=== PATIENT | female | born 1985 | race African-American/Black ===

== ENCOUNTER 2016-03-08 10:49 | Emergency (ER) | payer OTHER ==
[~2016-03-08] VITALS: Ht 165.1 cm; Wt 73.0 kg
[~2016-03-08 10:49] MED LIST: MOTRIN 600 MG600 MG PO; MOTRIN800 MG PO; PERCOCET 325 MG1 TA2 PO; TRAMADOL HCL50 M1 PO; VICODIN5-300 PO; ZOFRAN4 M1 PO; [UNRECOGNIZED DRUG - MIXTURE] PO
[2016-03-08 11:03] VITALS: BP 108/74
--- NOTE | 2016-03-08 11:23 | ED NECK/BACK PAIN COMPLAINT ---
History of Present Illness General Chief Complaint: Neck/Upper Back Pain/Injury Stated Complaint: NECK PAIN X 1WK Source: patient Exam Limitations: no limitations Vital Signs & Intake/Output Vital Signs & Intake/Output Vital Signs Date Time Temp Pulse Resp B/P Pulse O2 O2 Flow FiO2 Ox Delivery Rate 03/08 1103 98.7 77 18 108/74 97 Room Air Allergies Coded Allergies: NO KNOWN ALLERGIES (12/23/12) Triage Note: 31 Y/O FEMALE C/O R SIDED NECK PAIN X 1 WEEK; STATES PAIN RADIATES INTO UPPER BACK AND CAUSES MIGRAINE WITH NAUSEA. DENIES INJURIES OR TRAUMA Triage Nurses Notes Reviewed? yes : No Patient currently breastfeeds: No HPI: PATIENT IS A 31-YEAR-OLD FEMALE PRESENTS COMPLAINING OF RIGHT-SIDED NECK PAIN 1 week. Pain is a sharp shooting pain that is currently a 6 out of 10, worsens with movement and palpation. Pain radiating into the head causing patient to get headaches. Patient reports headaches are bitemporal and behind her eyes. Associated nausea with the headaches. Patient reports that the neck pain first began when she awoke one week ago. Patient cannot think of any inciting factor or trauma. Patient has not taken any medication for her symptoms. Patient denies numbness, weakness, falls, fevers, rashes. (ALFREDO GUADALUPE,VAIBHAV) Reconcile Medications Diazepam (Valium) 2 MG TABLET 1-2 TAB PO Q6 PRN MUSCLE RELAXANT Meloxicam (Mobic) 15 MG TABLET 1 TAB PO DAILY PRN PAIN/INFLAMMATION Metoclopramide HCl (Reglan) 10 MG TABLET 1 TAB PO TID PRN NAUSEA/HEADACHE NORETHINDRONE-E.ESTRADIOL-IRON (Lomedia 24 Fe 1 MG-20 Mcg Tab) 1 MG-20 MCG (24)/ 75 MG (4) TABLET 1 TAB PO DAILY CONTROL (Reported) (LAYLA FARRELL,RAJAN) Past History Travel History Traveled to [place] past 21 day No Medical History Any Pertinent Medical History? see below for history Neurological: NONE EENT: NONE Cardiovascular: NONE Respiratory: NONE Gastrointestinal: NONE Hepatic: NONE Renal: NONE Musculoskeletal: NONE Psychiatric: anxiety Endocrine: NONE Blood Disorders: NONE Cancer(s): NONE LICENSED MIDWIFE/Reproductive: NONE Surgical History Surgical History: N Psychosocial History What is your primary language Russian Tobacco Use: Never used ETOH Use: occasional use Illicit Drug Use: denies illicit drug use Family History Hx Contributory? No (VAIBHAV FUENTES) Review of Systems Review of Systems Constitutional: Denies: chills, fever. Eyes: Denies: blurred vision. Ears, Nose, Throat, Mouth: Reports: no symptoms. Respiratory: Denies: cough, short of breath. Cardiovascular: Denies: chest pain. Gastrointestinal/Abdominal: Reports: nausea (none currently). Denies: abdominal pain, vomiting. Musculoskeletal: Reports: neck pain. Denies: back pain. Skin: Reports: no symptoms. Neurological/Psychological: Reports: headache. Denies: confusion, numbness. (VAIBHAV FUENTES) Physical Exam Physical Exam General Appearance: well developed/nourished, alert, awake Head: atraumatic, normal appearance Eyes: Bilateral: normal appearance, PERRL, EOMI. Ears, Nose, Throat, Mouth: hearing grossly normal, moist mucous membrane Neck: normal inspection, supple, full range of motion, normal alignment, TENDERNESS RIGHT PARASPINAL MUSCLES AND RIGHT TRAPEZIUS MUSCLE. Respiratory: normal breath sounds, no respiratory distress, lungs clear Cardiovascular: regular rate/rhythm Peripheral Pulses: 2+ radial (R), 2+ radial (L) Back: normal inspection, normal range of motion Extremities: normal range of motion Neurologic/Psych: no motor/sensory deficits, awake, alert, oriented x 3, normal gait, normal mood/affect, REFLEXES 2+ RIGHT BICEPS AND BRACHIORADIALIS. Skin: intact, normal color, warm/dry (VAIBHAV FUENTES) Progress Differential Diagnosis: aortic dissection, carotid dissection, herniated disc, myofascial strain, spinal cord inj, T/L spine injury Plan of Care: Appears consistent with muscle strain/spasm. Labs and imaging deferred secondary to exam. We'll treat conservatively. (VAIBHAV FUENTES) Departure Departure Time of Disposition: 1130 Disposition: HOME OR SELF CARE Condition: Stable Clinical Impression Primary Impression: Cervical strain, acute Qualifiers: Encounter type: initial encounter Qualified Code: S16.1XXA - Strain of muscle, fascia and tendon at neck level, initial encounter Secondary Impressions: Headache Qualifiers: Headache type: unspecified Headache chronicity pattern: acute headache Intractability: not intractable Qualified Code: R51 - Headache Muscle spasm Referrals: LAM SANTANA MD (PCP/Family) Additional Instructions: Apply heat to the affected area for 20 minutes 4-5 times a day. Follow-up with your primary doctor if no improvement by Friday. Return to the emergency department if numbness, weakness, fevers, rash, pain uncontrollable, or worsening of symptoms. Departure Forms: Customer Survey General Discharge Information Prescriptions: Current Visit Scripts Diazepam (Valium) 1-2 TAB PO Q6 PRN MUSCLE RELAXANT #15 TAB Meloxicam (Mobic) 1 TAB PO DAILY PRN PAIN/INFLAMMATION #10 TAB Metoclopramide HCl (Reglan) 1 TAB PO TID PRN NAUSEA/HEADACHE #10 TAB (VAIBHAV FUENTES) PA/ASSOCIATE DIRECTOR CAREER SERVICES Co-Sign Statement Statement: ED Attending supervision documentation- [] I saw and evaluated the patient. I have also reviewed all the pertinent lab results and diagnostic results. I agree with the findings and the plan of care as documented in the PA's/ASSOCIATE DIRECTOR CAREER SERVICES's documentation. [X] I have reviewed the ED Record and agree with the PA's/ASSOCIATE DIRECTOR CAREER SERVICES's documentation. [] Additions or exceptions (if any) to the PAs/ASSOCIATE DIRECTOR CAREER SERVICES's note and plan are summarized below: [] (LAYLA FARRELL,RAJAN)
[2016-03-08] MEDS ORDERED: REGLAN10 M1 PO (11:32)
[2016-03-08] MEDS ORDERED: MOBIC15 M1 PO (11:32)
[2016-03-08] MEDS ORDERED: VALIUM2 M1 PO (11:32)
== END 2016-03-08 11:43 ==
LOC: ERH 10:49
DX: S16.1XXA Strain of muscle, fascia and tendon at neck level, initial encounter (principal); R51 Headache

== ENCOUNTER 2016-05-26 18:29 | Emergency (ER) | payer OTHER ==
[~2016-05-26] VITALS: Ht 165.1 cm; Wt 72.6 kg
[~2016-05-26 18:29] MED LIST changes: +MOBIC15 M1 PO; +REGLAN10 M1 PO; +VALIUM2 M1 PO
[2016-05-26 18:36] VITALS: BP 108/72
--- NOTE | 2016-05-26 19:45 | ED GENERAL ADULT ---
History of Present Illness General Chief Complaint: General Adult Stated Complaint: WEAK PER PT DOESN'T FEEL LIKE SELF Source: patient, family, old records Exam Limitations: no limitations Vital Signs & Intake/Output Vital Signs & Intake/Output Vital Signs Date Time Temp Pulse Resp B/P Pulse O2 O2 Flow FiO2 Ox Delivery Rate 05/27 2015 Room Air 05/26 1836 97.1 104 16 108/72 100 Room Air Allergies Coded Allergies: NO KNOWN ALLERGIES (12/23/12) Reconcile Medications Ciprofloxacin HCl/Dexameth (Ciprodex Otic Suspension) 0.3 %-0.1 % DROPS.SUSP 4 GTT OT BID otitis externa use for 7 days Norethindrone-E.estradiol-Iron (Blisovi 24 Fe Tablet) 1 MG-20 MCG (24)/75 MG (4) TABLET 1 TAB PO DAILY CONTROL (Reported) Triage Note: PT STATES SHE FEELS WEAK AND THINKS THAT SHE MAY HAVE AN EAR INFECTION IN HER LEFT EAR. PT STATES SHE FEELS LIKE SHE CAN GO TO SLEEP "FOR THE REST OF MY LIFE, IM THAT TIRED". Triage Nurses Notes Reviewed? yes : No Patient currently breastfeeds: No HPI: Patient is a 31-year-old female presents complaining of severe fatigue. Symptoms for 2-3 days. Also reporting right ear pain with fullness and pressure severe. Pain is currently mild to moderate. Patient denies fevers, chills, dyspnea (VAIBHAV FUENTES) Past History Travel History Traveled to [place] past 21 day No Medical History Any Pertinent Medical History? see below for history Neurological: NONE EENT: NONE Cardiovascular: NONE Respiratory: NONE Gastrointestinal: NONE Hepatic: NONE Renal: NONE Musculoskeletal: NONE Psychiatric: anxiety Endocrine: NONE Blood Disorders: NONE Cancer(s): NONE DIRECTOR OF RESIDENTIAL SERVICES/Reproductive: NONE Surgical History Surgical History: N Psychosocial History What is your primary language Spanish Tobacco Use: Never used ETOH Use: occasional use Illicit Drug Use: denies illicit drug use Family History Hx Contributory? No (VAIBHAV FUENTES) Review of Systems Review of Systems Constitutional: Reports: malaise. Denies: chills, fever. EENTM: Reports: see HPI. Respiratory: Reports: cough. Denies: short of breath. Cardiovascular: Denies: chest pain. GI: Denies: abdominal pain, diarrhea, nausea, vomiting. Genitourinary: Reports: no symptoms. Musculoskeletal: Reports: no symptoms. Skin: Denies: rash. Neurological/Psychological: Denies: headache, numbness. Hematologic/Endocrine: Denies: bruising, bleeding. Immunologic/Allergic: Denies: splenectomy. (VAIBHAV FUENTES) Physical Exam Physical Exam General Appearance: well developed/nourished, alert, awake Head: atraumatic, normal appearance Eyes: Bilateral: normal appearance. Ears, Nose, Throat: cerumen impaction right external auditory canal. Moderate cerumen left external auditory canal. Left tympanic membrane normal. Moist mucous membranes. Normal pharynx. Neck: normal inspection, supple, full range of motion Respiratory: normal breath sounds, chest non-tender, no respiratory distress, lungs clear Cardiovascular: mild tachycardia, regular rhythm. No appreciable murmur Peripheral Pulses: 2+ radial (R) Gastrointestinal: soft, non-tender Back: normal inspection, normal range of motion Extremities: normal inspection, normal capillary refill, normal range of motion, no edema Neurologic/Psych: no motor/sensory deficits, awake, alert, oriented x 3, normal gait, normal mood/affect Skin: intact, normal color, warm/dry Lymphatic: no anterior cervical livia Core Measures ACS in differential dx? No CVA/TIA Diagnosis: No Severe Sepsis Present: No Septic Shock Present: No (VAIBHAV FUENTES) Progress Differential Diagnoses I considered the following diagnoses in my evaluation of the patient: Anemia, electrolyte abnormality, thyroid abnormality, viral syndrome, otitis media, otitis externa, cerumen impaction, malignancy Plan of Care: Orders Procedure Date/time Status THYROID STIMULATING HORMONE 05/27 1939 Complete COMPREHENSIVE METABOLIC PANEL 05/27 1939 Complete CBC WITHOUT DIFFERENTIAL 05/27 1939 Complete URINE 05/26 183 Complete Laboratory Tests 05/26/162004: Anion Gap 12, Estimated GFR > 60, BUN/Creatinine Ratio 11.4, Glucose 96, Calcium 9.5, Total Bilirubin 0.3, AST 14, ALT 29, Alkaline Phosphatase 55, Total Protein 7.6, Albumin 4.0, Globulin 3.6, Albumin/Globulin Ratio 1.1, TSH 0.546, CBC w Diff NO MAN DIFF REQ, RBC 4.15 L, MCV 98.3, MCH 32.3 H, RDW 14.1, MPV 8.2, Gran % 49.8, Lymphocytes % 38.8, Monocytes % 8.4, Eosinophils % 1.4, Basophils % 1.6, Absolute Granulocytes 3.5, Absolute Lymphocytes 2.8, Absolute Monocytes 0.6 , Absolute Eosinophils 0.1, Absolute Basophils 0.1, PUBS MCHC 32.8 L 05/26/161841: Urine Test NEGATIVE Right cerumen impaction irrigated with warm water and peroxide. Ear rechecked after impaction was clear. Normal tympanic membrane. 2119: Results of labs discussed with patient. Patient reports mild pain to the right ear but feels improved after disimpaction. Recheck. Mild erythema to the right external auditory canal. Normal tympanic membrane. We'll start on eardrops. Patient has an appointment with her primary care doctor tomorrow. (VAIBHAV FUENTES) Initial ED EKG: none (VAIBHAV FUENTES) Departure Departure Time of Disposition: 2121 Disposition: HOME OR SELF CARE Condition: Stable Clinical Impression Primary Impression: Fatigue Secondary Impressions: Impacted cerumen of right ear, Right otitis externa Referrals: LAM SANTANA MD (PCP/Family) Additional Instructions: Follow-up with your primary doctor tomorrow as previously scheduled. Departure Forms: Customer Survey General Discharge Information Prescriptions: Current Visit Scripts Ciprofloxacin HCl/Dexameth (Ciprodex Otic Suspension) 4 GTT OT BID #1 BOT use for 7 days (VAIBHAV FUENTES) PA/INTRANET SPECIALIST Co-Sign Statement Statement: ED Attending supervision documentation- [] I saw and evaluated the patient. I have also reviewed all the pertinent lab results and diagnostic results. I agree with the findings and the plan of care as documented in the PA's/INTRANET SPECIALIST's documentation. [X] I have reviewed the ED Record and agree with the PA's/INTRANET SPECIALIST's documentation. [] Additions or exceptions (if any) to the PAs/INTRANET SPECIALIST's note and plan are summarized below: [] (OLVIN FARRELL,MADAN Nieto) Critical Care Note Critical Care Note Critical Care Time: non-applicable (VAIBHAV FUENTES)
[2016-05-26] MEDS ORDERED: BLISOVI 24 FE1 EACH PO (20:01)
[2016-05-26 20:15] LABS: ABSOLUTE BASOPHIL COUNT 0.1 /CUMM (0.0-0.2); ABSOLUTE EOSINOPHIL COUNT 0.1 /CUMM (0.0-0.7); ABSOLUTE GRANULOCYTE CT 3.5 /CUMM (1.4-6.5); ABSOLUTE LYMPH COUNT 2.8 /CUMM (1.2-3.4); ABSOLUTE MONOCYTE COUNT 0.6 /CUMM (0.10-0.60); BASOPHIL % 1.6 % (0.0-2.0); EOSINOPHIL % 1.4 % (0-5); GRANULOCYTE % 49.8 % (42.2-75.2); HEMATOCRIT 40.8 % (37-47); MEAN CORPUSCULAR HGB 32.3 PG (27.0-31.0); MEAN CORPUSCULAR HGB CONC 32.8 G/DL (33.0-37.0); MEAN CORPUSCULAR VOLUME 98.3 FL (81.0-99.0); MEAN PLATELET VOLUME 8.2 FL (7.4-10.4); PLATELET COUNT 312 /CUMM (130-400); RBC DISTRIBUTION WIDTH 14.1 % (11.5-14.5); RED BLOOD CELL CT 4.15 /CUMM (4.20-5.40); WHITE BLOOD CELL COUNT 7.1 /CUMM (4.8-10.8)
[2016-05-26] MEDS ORDERED: CIPRODEX OTIC7.5 ML OT (21:24)
== END 2016-05-26 21:27 ==
LOC: ERH 18:29
PROVIDERS: Physician Assistant
DX: R53.83 Other fatigue (principal); H60.91 Unspecified otitis externa, right ear; H61.21 Impacted cerumen, right ear
CPT/HCPCS: 81025

== ENCOUNTER 2017-03-16 17:04 | Emergency (ER) | payer OTHER ==
[~2017-03-16] VITALS: Ht 165.1 cm; Wt 72.1 kg
[~2017-03-16 17:04] MED LIST changes: +BLISOVI 24 FE1 EACH PO; +CIPRODEX OTIC7.5 ML OT
[2017-03-16 17:09] VITALS: BP 111/73
--- NOTE | 2017-03-16 17:15 | ED UPPER/LOWER EXTREMITY COMPL ---
History of Present Illness General Chief Complaint: Shoulder Injury Stated Complaint: SHOULDER PAIN Source: patient Exam Limitations: no limitations Vital Signs & Intake/Output Vital Signs & Intake/Output Vital Signs Date Time Temp Pulse Resp B/P B/P Pulse O2 O2 Flow FiO2 Mean Ox Delivery Rate 03/16 1721 99.0 03/16 1709 99.0 68 18 111/73 96 Room Air Room Air Allergies Coded Allergies: NO KNOWN ALLERGIES (12/23/12) Reconcile Medications Ciprofloxacin HCl/Dexameth (Ciprodex Otic Suspension) 0.3 %-0.1 % DROPS.SUSP 4 GTT OT BID otitis externa use for 7 days Norethindrone-E.estradiol-Iron (Blisovi 24 Fe Tablet) 1 MG-20 MCG (24)/75 MG (4) TABLET 1 TAB PO DAILY CONTROL (Reported) Triage Note: TRIAGE: 32 Y/O FEMALE 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 REPORTS WAS "BOOSTING A PATIENT AND FELT A SHARP PAIN AT THE TOP OF MY SHOULDER." PAIN HAS INCREASED AND NOW RADIATES DOWN LEFT ARM - "IT'S TINGLING AND MY HAND IS STARTING TO GO NUMB." AT PRESENT, PAIN 8-9/10. DECLINES MEDICATION IN TRIAGE. Triage Nurses Notes Reviewed? 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 Denies any neck or elbow pain. No medications given prior to arrival (Laci Triana) Past History Travel History Traveled to [facility] past 21 day No Medical History Any Pertinent Medical History? 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 No (Laci Triana) Review of Systems Review of Systems Constitutional: Reports: no symptoms. EENTM: Reports: no symptoms. Respiratory: Reports: no symptoms. Cardiovascular: Reports: no symptoms. Gastrointestinal/Abdominal: Reports: no symptoms. Genitourinary: Reports: no symptoms. Musculoskeletal: Reports: see HPI, joint pain. Skin: Reports: no symptoms. Neurological/Psychological: Reports: no symptoms. Hematologic/Endocrine: Reports: no symptoms. Immunological: Reports: no symptoms. All Other Systems: Reviewed and Negative (Laci Triana) Physical Exam Physical Exam General Appearance: no apparent distress, alert, comfortable Head: atraumatic Eyes: Bilateral: normal appearance. Ears, Nose, Throat: hearing grossly normal Neck: normal inspection Cardiovascular/Respiratory: no respiratory distress Peripheral Pulses: 2+ radial (L) Elbow Left: normal range of motion, normal inspection Hand Left: normal inspection, normal range of motion Neurologic/Tendon: normal sensation, normal motor functions, normal tendon functions, responds to pain, no evidence tendon injury, no pulse deficit Skin: intact, normal color, warm/dry Comments: Left shoulder normal inspection noted acromioclavicular point tenderness FULL active range of motion noted pain above 90 of flexion abduction, (Laci Triana) Progress Differential Diagnosis: arterial insufficiency, compartment syndrome, contusion, dislocation, DVT, fracture, gout, septic arthritis, sprain, tendon injury Plan of Care: Orders Procedure Date/time Status Durable Medical Equipment 03/16 1901 Active X-rays were unremarkable for osseous injury due to history of present illness and patient point tenderness patient will be treated for concerns of AC grade 1 sprain shoulder immobilizer was placed pre-and post-neurovascular was intact Diagnostic Imaging: Viewed by Me: Radiology Read. Radiology Impression: no fracture Comments: PATIENT: LING MANNING PRESENT AGE: 32 PATIENT ACCOUNT NO: [id number] : 84 LOCATION: [facility] ORDERING PHYSICIAN: Laci GUADALUPE SERVICE DATE: 03/16/17365 EXAM TYPE: RAD - XRY-SHOULDER COMPLETE-LEFT EXAMINATION: XR SHOULDER, LEFT CLINICAL INFORMATION: 32-year-old woman with left shoulder pain. COMPARISON: None TECHNIQUE: Three views of the left shoulder. FINDINGS: The bones and soft tissues are normal. No fracture. Glenohumeral and acromioclavicular alignment is anatomic with normal joint space. No abnormal soft tissue calcifications. IMPRESSION: Normal left shoulder. DICTATED BY: Vidhya Tobar MD DATE/TIME DICTATED:03/16/171757 MAINTENANCE JOB TITLES:DWIGHT DATE/TIME TRANSCRIBED:03/16/171757 (Laci Triana) Departure Departure Disposition: HOME OR SELF CARE Condition: Stable Clinical Impression Primary Impression: Shoulder pain, left Secondary Impressions: Acromioclavicular joint injury Referrals: Ronald FARRELL,Vick Additional Instructions: As discussed begin icing the area directly 20 minutes every 2 hours, begin using the shoulder immobilizer THAT has been provided to YOU IN the emergency room until you can move the arm without pain, symptoms worsen return to emergency ROOM if no better in one week follow up with orthopedic Dr. Cardenas. Begin over- the-counter ibuprofen for pain and inflammation follow-up with [facility] this week Departure Forms: Customer Survey [employer] Employee Acc Report General Discharge Information (Laci Triana) PA/PRIMER WATERPROOFING MACHINE OPERATOR Co-Sign Statement Statement: ED Attending supervision documentation- I saw and evaluated the patient. I have also reviewed all the pertinent lab results and diagnostic results. I agree with the findings and the plan of care as documented in the PA's/PRIMER WATERPROOFING MACHINE OPERATOR's documentation. x I have reviewed the ED Record and agree with the PA's/PRIMER WATERPROOFING MACHINE OPERATOR's documentation. [] Additions or exceptions (if any) to the PAs/PRIMER WATERPROOFING MACHINE OPERATOR's note and plan are summarized below: [] (Roshan FARRELL,Erasmo)
--- NOTE | 2017-03-16 18:02 | RADIOLOGY REPORT ---
EXAMINATION: XR SHOULDER, LEFT CLINICAL INFORMATION: 32-year-old woman with left shoulder pain. COMPARISON: None TECHNIQUE: Three views of the left shoulder. FINDINGS: The bones and soft tissues are normal. No fracture. Glenohumeral and acromioclavicular alignment is anatomic with normal joint space. No abnormal soft tissue calcifications. IMPRESSION: Normal left shoulder.
== END 2017-03-16 19:16 ==
LOC: ERH 17:04
DX: S49.92XA Unspecified injury of left shoulder and upper arm, initial encounter (principal); M25.512 Pain in left shoulder; X50.0XXA Overexertion from strenuous movement or load, initial encounter; Y93.F2 Activity, caregiving, lifting; Y92.239 Unspecified place in hospital as the place of occurrence of the external cause
CPT/HCPCS: 73030-LT

== ENCOUNTER 2017-05-17 11:40 | Emergency (ER) | payer OTHER ==
[~2017-05-17] VITALS: Ht 165.1 cm; Wt 73.5 kg
--- NOTE | 2017-05-17 12:16 | ED CARDIAC/CP/PALPITATIONS ---
History of Present Illness General Chief Complaint: Chest Pain Stated Complaint: CHEST PAIN "ELEPHANT ON CHEST" Source: patient Exam Limitations: no limitations Vital Signs & Intake/Output Vital Signs & Intake/Output Vital Signs Date Time Temp Pulse Resp B/P B/P Pulse O2 O2 Flow FiO2 Mean Ox Delivery Rate 05/17 1524 99.3 75 18 112/73 100 Room Air 05/17 1248 98.6 05/17 1221 98 Room Air Room Air 05/17 1219 98.6 05/17 1154 98.6 84 18 122/70 100 Room Air Allergies Coded Allergies: latex (RASH 05/17/17) Reconcile Medications Cholecalciferol (Vitamin D3) (Vitamin D3) (Unknown Strength) CAPSULE (Unknown Dose) PO DAILY SUPPLEMENT (Reported) Multiple Vitamin (Multivitamins) 1 EACH TABLET 1 TAB PO DAILY SUPPLEMENT ( Reported) Norethindrone-E.estradiol-Iron (Blisovi 24 Fe Tablet) 1 MG-20 MCG (24)/75 MG (4) TABLET 1 TAB PO DAILY CONTROL (Reported) Omeprazole 20 MG TABLET.DR 1-2 TAB PO DAILY PRN abdominal pain Triage Note: PT TO ER C/O CHEST PAIN SINCE LAST NIGHT, PT WOKE UP THIS MORNING AND STATES IT FELT LIKE AN ELEPHANT WAS ON HER CHEST. PT STATES PAIN IS 7/10 PT ALSO C/O NASAL CONGESTION PT IS TEARFUL IN TRIAGE AN STATES THAT SHE HAS A HISTORY OF ANXIETY, DEPRESSION AND PANICK ATTACKS Triage Nurses Notes Reviewed? yes Onset: Gradual Duration: day(s): (2), better, continues in ED Timing: single episode today Quality/Severity: moderate, pressure, sharp Location: epigastric Radiation: no radiation Activities at Onset: none Prior Chest Pain/Card Workup: no prior chest pain, no prior cardiac workup Modifying Factors: Worsens With: lying down. Nitro Today/Relief: no nitro taken today Aspirin Today: no aspirin today Associated Symptoms: abdominal pain LMP (ages 10-50): unknown : No Patient currently breastfeeds: No HPI: 32-year-old female past medical history of anxiety, depression, peptic ulcer disease presents for evaluation of chest pain and epigastric pain. Patient states that she first noticed this pain last night that has been persistent. It was worse when she woke up this morning. The pain is located in her epigastric area and radiates up into her chest. She describes the pain as pressure that is intermittently sharp. She's never had anything like this before. She denies any shortness of breath hemoptysis lower extremity edema nausea vomiting. She does report that she has a history of gastric ulcers but they never been this painful before. The pain does not get worse on exertion but is worse with laying back down. She has not eaten anything since the pain started. No melena or bright red blood per rectum. No back pain. (Jose Alfredo De Los Santos) Past History Travel History Traveled to [place] past 21 day No Medical History Any Pertinent Medical History? see below for history Neurological: NONE EENT: NONE Cardiovascular: NONE Respiratory: NONE Gastrointestinal: NONE Hepatic: NONE Renal: NONE Musculoskeletal: NONE Psychiatric: anxiety, depression Endocrine: NONE Blood Disorders: NONE Cancer(s): NONE REMEDY DEVELOPER/Reproductive: NONE Surgical History Surgical History: non-contributory, N Psychosocial History What is your primary language Albanian Tobacco Use: Never used Family History Hx Contributory? No (Jose Alfredo De Los Santos) Review of Systems Review of Systems Constitutional: Reports: no symptoms. EENTM: Reports: no symptoms. Respiratory: Reports: no symptoms. Cardiovascular: Reports: see HPI, chest pain. GI: Reports: see HPI, abdominal pain. Genitourinary: Reports: no symptoms. Musculoskeletal: Reports: no symptoms. Skin: Reports: no symptoms. Neurological/Psychological: Reports: no symptoms. Hematologic/Endocrine: Reports: no symptoms. Immunologic/Allergic: Reports: no symptoms. All Other Systems: Reviewed and Negative (Jose Alfredo De Los Santos) Physical Exam Physical Exam General Appearance: well developed/nourished, alert, awake, anxious, mild distress Head: atraumatic, normal appearance Eyes: Bilateral: normal appearance, PERRL, EOMI. Ears, Nose, Throat: normal pharynx, normal ENT inspection, hearing grossly normal Neck: normal inspection, supple, full range of motion Respiratory: normal breath sounds, no respiratory distress, lungs clear, chest wall tender palpation over the sternum and left chest no bruising swelling or abrasions Cardiovascular: regular rate/rhythm, normal peripheral pulses Peripheral Pulses: 2+ radial (R), 2+ radial (L) Gastrointestinal: normal bowel sounds, soft, no organomegaly, tenderness ( epigastric ), no right upper quadrant tenderness Back: normal inspection, normal range of motion, no vertebral tenderness Extremities: normal inspection, normal range of motion, no edema Neurologic/Psych: no motor/sensory deficits, awake, alert, oriented x 3, normal gait, normal mood/affect Skin: intact, normal color, warm/dry Lymphatic: no anterior cervical livia Core Measures ACS in differential dx? Yes CVA/TIA Diagnosis No Sepsis Present: No Sepsis Focused Exam Completed? No (Jose Alfredo De Los Santos) Progress Differential Diagnosis: AMI, aortic dissection, cholecystitis, costochondritis, musculoskeletal pain, pancreatitis, pericarditis, pneumonia, pneumothorax, PSVT, pulmonary embolism, PUD/GERD, PVCs/PACs, rib fracture, unstable angina Plan of Care: Orders Procedure Date/time Status Regular Diet 05/17 D Active Add-on Test (ER Only) 05/17 1309 Active D-DIMER 05/17 1210 Complete LIPASE 05/17 1208 Complete Add-on Test (ER Only) 05/17 1203 Active URINE 05/17 1151 Complete TROPONIN LEVEL 05/17 1149 Complete COMPREHENSIVE METABOLIC PANEL 05/17 1149 Complete CBC WITHOUT DIFFERENTIAL 05/17 1149 Complete EKG 05/17 1141 Active Laboratory Tests 05/17/17 1315: Urine Test NEGATIVE 05/17/17 1208: Anion Gap 11, Estimated GFR > 60, BUN/Creatinine Ratio 8.6, Glucose 90, Calcium 9.5, Total Bilirubin 0.5, AST 12 L, ALT 17, Alkaline Phosphatase 43, Troponin I < 0.01, Total Protein 7.3, Albumin 4.0, Globulin 3.3, Albumin/Globulin Ratio 1.2 , Lipase 32, D-Dimer High Sensitivty < 200, CBC w Diff NO MAN DIFF REQ, RBC 4.24 , MCV 98.5, MCH 32.5 H, MCHC 33.0, RDW 15.2 H, MPV 8.4, Gran % 47.7, Lymphocytes % 41.2, Monocytes % 9.5 H, Eosinophils % 1.2, Basophils % 0.4, Absolute Granulocytes 2.9, Absolute Lymphocytes 2.5, Absolute Monocytes 0.6, Absolute Eosinophils 0.1, Absolute Basophils 0 Patient seen and evaluated. She is reporting pain in her epigastric area that radiates up into her chest. Vital signs are stable this pain is reproducible with palpation and laying back. Nose negative. Family or personal history of heart disease. EKG is stable. D-dimer negative troponin negative. Patient was medicated with Tylenol GI cocktail and reports some improvement. Chest x-ray is stable. Patient was reevaluated and reports improvement in her pain is still present. She was given a dose of Pepcid. On reevaluation after Pepcid she reports nearly complete resolution of symptoms. She reports only mild epigastric pain currently 1 out of 10. No longer having any chest pain no shortness of breath. No right upper quadrant tenderness. She was able to eat and drink here without difficulty. Reviewed all results of today's visit with patient. She was instructed to rest drink plenty of water avoid greasy fatty spicy foods. Follow -up with Dr. Nino. Omeprazole as directed. Monitor symptoms return with any concerns. Patient agrees the plan she is nontoxic-appearing. Diagnostic Imaging: Viewed by Me: Radiology Read. Discussed w/RAD: Radiology Read. Radiology Impression: PATIENT: LING MANNING PRESENT AGE: 32 PATIENT ACCOUNT NO: [id number] : 84 LOCATION: [facility] ORDERING PHYSICIAN: Jose Alfredo GUADALUPE SERVICE DATE: 05/17/17 EXAM TYPE: RAD - XRY-CHEST XRAY, TWO VIEWS EXAMINATION: XR CHEST CLINICAL INFORMATION: Chest pain. Presumptive diagnosis of pneumonia, CHF. COMPARISON: Chest x-ray dated 07/05/2006. TECHNIQUE : 2 views of the chest were obtained. FINDINGS: The cardiomediastinal silhouette is within normal limits in size. Lungs bilaterally are symmetrically expanded and clear. No focal consolidation, effusion or pneumothorax is seen. Mild S- shaped thoracic scoliosis is seen. IMPRESSION: Unremarkable examination. No evidence of focal pneumonia or CHF. DICTATED BY: Viridiana Whitfield MD DATE/TIME DICTATED:05/17/171353 AGRICULTURAL ENGINEER:DWIGHT DATE/TIME TRANSCRIBED:1353 CONFIDENTIAL, DO NOT COPY WITHOUT APPROPRIATE AUTHORIZATION. < Electronically signed in Other Vendor System> SIGNED BY: Viridiana Whitfield MD 05/17/17 1400 Initial ED EKG: normal sinus rhythm, no ST T wave changes (Jose Alfredo De Los Santos) Departure Departure Disposition: HOME OR SELF CARE Condition: Stable Clinical Impression Primary Impression: Epigastric pain Referrals: Kirk Bennett MD (PCP/Family) Luke Nino MD Additional Instructions: Rest, drink plenty of fluids. Avoid greasy fatty spicy foods. Use omeprazole once daily as needed for pain. Make a follow-up appointment with your primary care doctor and Dr. Nino as soon as possible. Monitor symptoms closely. Return with worsening pain, vomiting, blood in your stool or any other concerns. Departure Forms: Customer Survey General Discharge Information Prescriptions: Current Visit Scripts Omeprazole 1-2 TAB PO DAILY PRN abdominal pain #30 TAB (Jose Alfredo De Los Santos) PA/FRUIT PRESS OPERATOR Co-Sign Statement Statement: ED Attending supervision documentation- [] I saw and evaluated the patient. I have also reviewed all the pertinent lab results and diagnostic results. I agree with the findings and the plan of care as documented in the PA's/FRUIT PRESS OPERATOR's documentation. [X] I have reviewed the ED Record and agree with the PA's/FRUIT PRESS OPERATOR's documentation. [] Additions or exceptions (if any) to the PAs/FRUIT PRESS OPERATOR's note and plan are summarized below: [] (Kyle FARRELL,Eneida) Critical Care Note Critical Care Note Critical Care Time: non-applicable (Jose Alfredo De Los Santos)
[2017-05-17 12:30] LABS: ABSOLUTE BASOPHIL COUNT 0 /CUMM (0.0-0.2); ABSOLUTE EOSINOPHIL COUNT 0.1 /CUMM (0.0-0.7); ABSOLUTE GRANULOCYTE CT 2.9 /CUMM (1.4-6.5); ABSOLUTE LYMPH COUNT 2.5 /CUMM (1.2-3.4); ABSOLUTE MONOCYTE COUNT 0.6 /CUMM (0.10-0.60); BASOPHIL % 0.4 % (0.0-2.0); EOSINOPHIL % 1.2 % (0-5); GRANULOCYTE % 47.7 % (42.2-75.2); HEMATOCRIT 41.7 % (37-47); MEAN CORPUSCULAR HGB 32.5 PG (27.0-31.0); MEAN CORPUSCULAR VOLUME 98.5 FL (81.0-99.0); MEAN PLATELET VOLUME 8.4 FL (7.4-10.4); PLATELET COUNT 326 /CUMM (130-400); RBC DISTRIBUTION WIDTH 15.2 % (11.5-14.5); RED BLOOD CELL CT 4.24 /CUMM (4.20-5.40)
[2017-05-17] MEDS ORDERED: MULTIVITAMINS1 EAC9 PO (13:20)
[2017-05-17] MEDS ORDERED: VITAMIN D31000 UNI1 PO (13:21)
--- NOTE | 2017-05-17 14:00 | RADIOLOGY REPORT ---
EXAMINATION: XR CHEST CLINICAL INFORMATION: Chest pain. Presumptive diagnosis of pneumonia, CHF. COMPARISON: Chest x-ray dated 07/05/2006. TECHNIQUE: 2 views of the chest were obtained. FINDINGS: The cardiomediastinal silhouette is within normal limits in size. Lungs bilaterally are symmetrically expanded and clear. No focal consolidation, effusion or pneumothorax is seen. Mild S-shaped thoracic scoliosis is seen. IMPRESSION: Unremarkable examination. No evidence of focal pneumonia or CHF.
[2017-05-17 15:24] VITALS: BP 112/73
[2017-05-17] MEDS ORDERED: OMEPRAZOLE20 M3 PO (15:24)
== END 2017-05-17 15:36 ==
LOC: ERH 11:40
PROVIDERS: Physician Assistant Medical
DX: R10.13 Epigastric pain (principal); R07.89 Other chest pain
CPT/HCPCS: 71046; 81025; 93005; 93010